=== PATIENT | female | born 1980 | race Two or more races ===

== ENCOUNTER 2016-06-23 06:18 | Inpatient (IN) | payer OTHER ==
[~2016-06-23] VITALS: Ht 158.8 cm; Wt 72.1 kg
[2016-06-23] MEDS ORDERED: 0.9 % SODIUM CHLORIDE 10 ML DISP.SYRIN. IV PRN ×2 (06:30→15:15)
[2016-06-23] MEDS ORDERED: TERBUTALINE 1 MG/ML VIAL. SQ PRN (06:30)
[2016-06-23] MEDS ORDERED: MAG HYDROX/AL HYDROX/SIMETH 30 ML ORAL.SUSP PO PRN ×2 (06:30→15:15)
[2016-06-23] MEDS ORDERED: BUTORPHANOL 2 MG VIAL. IV PRN (06:30)
[2016-06-23] MEDS ORDERED: ONDANSETRON PF 4 MG/2 ML VIAL. IV PRN (06:30)
[2016-06-23] MEDS ORDERED: FENTANYL PF 100 MCG/2 ML VIAL. IV PRN (06:30)
[2016-06-23] MEDS ORDERED: ACETAMINOPHEN 325 MG TABLET. PO PRN ×2 (06:30→15:15)
[2016-06-23] MEDS ORDERED: CITRIC ACID/SODIUM CITRATE 30 ML SOLUTION. PO PRN (06:30)
[2016-06-23] MEDS ORDERED: IBUPROFEN 800 MG TABLET. PO PRN (06:30)
[2016-06-23] MEDS ORDERED: OXYTOCIN 30 UNIT/500 ML PREMIX 500 ML IV PRN ×3 (06:30→16:00)
[2016-06-23] MEDS: IV RINGERS,LACTATED 1000ML 1,000 ML IV SCH ×3 (06:56→17:30)
[2016-06-23] MEDS ORDERED: AMPICILLIN 2 GM in IV NORMAL SALINE 100ML 100 ML IV ONE (07:00)
[2016-06-23 07:13] LABS: BILIRUBIN,URINE NEGATIVE (NEG); GLUCOSE,URINE NEGATIVE (NEG); NITRITE,URINE NEGATIVE (NEG); PH,URINE 5.5; PROTEIN,URINE NEGATIVE (NEG-TRACE); UROBILINOGEN,URINE 0.2 mg/dL (0.2 mg/dL)
[2016-06-23 07:19] LABS: HEMATOCRIT 42.3 % (36.0-47.0); HEMOGLOBIN 14.4 g/dL (12.0-15.5); RED BLOOD COUNT 4.31 x10^6/uL (3.50-5.40); RED CELL DISTRIBUTION WIDTH 13.5 % (11.5-14.5); WHITE BLOOD COUNT 6.9 x10^3/uL (4.0-11.0)
[2016-06-23 07:26] LABS: BACTERIA,URINE MODERATE /HPF (0-FEW); SQUAMOUS EPITHELIAL CELL,UR MANY /LPF
[2016-06-23 08:14] VITALS: BP 118/63
[2016-06-23] MEDS ORDERED: AMPICILLIN 1 GM in IV NORMAL SALINE 50ML 50 ML IV SCH (11:00)
[2016-06-23] MEDS: LIDOCAINE 1% PF 30 ML VIAL. INJ PRN ×3 (13:54→15:43)
[2016-06-23] MEDS ORDERED: BENZOCAINE 20% TOPICAL AEROSOL SPRAY 57GM CAN. TP PRN (15:15)
[2016-06-23] MEDS ORDERED: SIMETHICONE 80 MG TAB.CHEW PO PRN (15:15)
[2016-06-23] MEDS ORDERED: HYDROCODONE/APAP 5/325MG TABLET. PO PRN ×2 (15:15→15:30)
[2016-06-23] MEDS ORDERED: DIPHENHYDRAMINE HCL 25 MG CAPSULE PO PRN (15:15)
[2016-06-23] MEDS ORDERED: ZOLPIDEM 5 MG TABLET. PO PRN (15:15)
[2016-06-23] MEDS ORDERED: HYDROCORTISONE 1% TOPICAL OINTMENT 30GM TUBE. TP PRN (15:15)
[2016-06-23] MEDS ORDERED: MAGNESIUM HYDROXIDE 2,400 MG/30 ML ORAL.SUSP. PO PRN (15:15)
[2016-06-23] MEDS ORDERED: PHENYLEPH/MINERAL OIL/PETROLAT RECTAL OINTMENT 28GM TUBE. RC PRN (15:15)
[2016-06-23 17:39] LABS: BASO % 0 % (0-3); EOS % 0 % (0-3); HEMOGLOBIN 11.8 g/dL (12.0-15.5); LYMPH # 0.7 x10^3/uL (1.0-4.8); LYMPH % 4 % (24-48); MEAN CORPUSCULAR HEMOGLOBIN 34 pg (25-35); MEAN CORPUSCULAR HGB CONC 35 g/dL (31-37); MEAN CORPUSCULAR VOLUME 97 fL (79-100); MONO % 5 % (0-9); NEUT % 91 % (31-73); PLATELET COUNT 150 x10^3/uL (140-400); RED BLOOD COUNT 3.53 x10^6/uL (3.50-5.40); RED CELL DISTRIBUTION WIDTH 14.1 % (11.5-14.5); WHITE BLOOD COUNT 17.3 x10^3/uL (4.0-11.0)
[2016-06-23] MEDS: IBUPROFEN 800 MG TABLET. PO SCH (17:44)
[2016-06-23 18:14] LABS: PLT ESTIMATE ADEQUATE (ADEQUATE); TOXIC GRANULATION SLIGHT
[2016-06-23 20:10] VITALS: BP 98/52
[2016-06-23 21:10] VITALS: BP 104/54
[2016-06-24 01:00] VITALS: BP 92/57
[2016-06-24] MEDS ORDERED: INFLUENZA VAX SCREEN BY RX. MC PRN (02:00)
[2016-06-24 05:00] VITALS: BP 80/42
[2016-06-24] MEDS: FERROUS SULFATE 325 MG TABLET PO SCH (08:03)
[2016-06-24] MEDS: IBUPROFEN 800 MG TABLET. PO SCH ×2 (08:03→18:26)
[2016-06-24] MEDS ORDERED: FLU VACC QUAD 2016-17 (36MOS+)/PF 0.5 ML SYRINGE. VAX IM ONE (09:00)
[2016-06-24] MEDS ORDERED: DIPHTH,PERTUSS(ACELL),TET TOX 0.5 ML DISP.SYRIN. VAX IM ONE (09:00)
[2016-06-24 12:24] VITALS: BP 93/58
[2016-06-24 22:00] VITALS: BP 92/58
[2016-06-25] MEDS: IBUPROFEN 800 MG TABLET. PO SCH ×2 (02:20→08:30)
[2016-06-25 05:00] VITALS: BP 94/57
[2016-06-25] MEDS: FERROUS SULFATE 325 MG TABLET PO SCH (08:29)
[2016-06-25 12:25] VITALS: BP 98/61
--- NOTE | 2016-06-25 14:22 | PDOC3 ---
OB DISCHARGE SUMMARY DATE OF ADMISSION: 06/23/16 DATE OF DISCHARGE: 06/25/16 REASON FOR ADMISSION: Induction of labor PROCEDURES: Ultrasound INTRAPARTUM PROCEDURES: Spontanous Vag Deliv PROCEDURES: None OPERATIONS: None DISCHARGE DIAGNOSIS: Term Delivered DISCHARGE INFORMATION: Activity, Diet HOSPITAL COURSE fUnremarkable CONDITION AT DISCHARGE Stable KAMAR BEEBE MD Jun 25, 2016 14:22
[2016-06-25] MEDS ORDERED: HYDR-971 PO (14:23)
[2016-06-25] MEDS ORDERED: NAPR500T3 PO (14:23)
[2016-06-26] MEDS ORDERED: DOCUSATE SODIUM 100 MG CAPSULE PO SCH (10:00)
--- NOTE | 2016-06-26 12:10 | PDOC1 ---
OB - History Hx of Present Care: Good Care Ultrasounds: Normal mid trimester US Obstetrical Complications: None Medical Complications: None Past Family/Social History * Past Medical, Surgical, Family and Obstetric Histories reviewed from chart. Blood Type: A+ Rubella: Immune RPR/VDRL: Negative GBS Status: Negative HBsAG: Negative OB - Chief Complaint & HPI Date of Admission: Date of Admission: Jun 23, 2016 at 06:18 Chief Complaint/History : 1 Para: 0 EDC: Jun 22, 2016 Reason for admission: induction of labor Indication for induction: post dates Admission Nurse Assessment Rev: Yes Problems: OB - Admission Exam Physical Exam Vitals: VS - Last 72 Hours, by Label Date Time Temp Pulse Resp B/P Pulse Ox O2 Delivery O2 Flow Rate FiO2 06/25/16 12:25 97.7 81 18 98/61 98 Room Air 97.7 06/25/16 05:00 98.0 77 18 94/57 Room Air 98.0 06/24/16 22:00 98.3 77 18 92/58 Room Air 98.3 06/24/16 12:24 98.4 94 18 93/58 97 Room Air 98.4 06/24/16 05:00 98.4 84 20 80/42 98.4 06/24/16 01:00 97.4 88 20 92/57 Room Air 97.4 06/23/16 21:10 97.4 90 20 104/54 Room Air 97.4 06/23/16 20:10 98.4 105 20 98/52 Room Air 98.4 06/23/16 13:05 20 Room Air HEENT: Normal, Nasal Mucosa Normal, Oropharynx Normal, Moist Membranes, Fontanelles Normal Heart: Regular Rate Lungs: Clear, Equal Abdomen: Gravid Extremities: Normal Pulses, No tenderness or swelling Reflexes: Normal Cervical Dilatation: 3cm Effacement: 75% Station: -3 Membranes: Intact Accelerations: Accelerations Present Assessment/Plan Assessment/Plan TIUP Induction ACS KAMAR BEEBE MD Jun 26, 2016 12:10
--- NOTE | 2016-06-26 12:12 | PDOC ---
Provider Note Provider Note Late Entry 06/24/16 No complaints VSS Uterus NTTP FU in AM KAMAR BEEBE MD Jun 26, 2016 12:12
--- NOTE | 2016-06-26 12:15 | PDOC ---
VAGINAL DELIVERY DATE 06/23/16 : 1 EDC: Jun 22, 2016 VAGINAL DELIVERY: VTX VACCUM ASSISTED: No PLACENTA: Spontaneous SEX: Female WEIGHT Weight 3215gm ] Nuchal Cord: No Amniotic Fluid: Clear PAIN: Local EPISIOTOMY: Yes EXTENSION: No COMPLICATIONS None CONDITION Stable Signs of Intrauterine Infectio: None Shoulder Dystocia: No DIAGNOSIS TIUP del Problems: KAMAR BEEBE MD Jun 26, 2016 12:15
== END 2016-06-25 17:08 | disposition home or self-care (01) | DRG 775 ==
LOC: 3 SO LND 06:18 → 3 NORTH 20:10
PROVIDERS: ADMIT Specialist; ATTEND Specialist
PROC: 10E0XZZ Delivery of Products of Conception, External Approach (ICD-10-PCS; principal; 2016-06-23)
PROC: 0W8NXZZ Division of Female Perineum, External Approach (ICD-10-PCS; 2016-06-23)
DX: O80 Encounter for full-term uncomplicated delivery (principal); Z37.0 Single live birth; Z3A.00 Weeks of gestation of pregnancy not specified
CPT/HCPCS: 36415; 81001; 82947; 85007; 85014; 85027; 86593; 86850; 86900; 86901; 87086; 90686; 90715; J0290; J2590; J3010; J7120